=== PATIENT | female | born 2000 | race Caucasian/White ===

== ENCOUNTER 2021-07-09 16:25 | Emergency (ER) | payer OTHER ==
[~2021-07-09] VITALS: Ht 154.9 cm; Wt 34.9 kg
[2021-07-09 17:05] VITALS: BP 129/85
[2021-07-09] MEDS ORDERED: cefTRIAXone SOD 1,000 MG VL IM ONE (17:15)
[2021-07-09] MEDS ORDERED: NAPR500T31 PO (17:51)
[2021-07-09] MEDS ORDERED: CEPH500C PO (17:51)
== END 2021-07-09 17:55 | disposition home or self-care (01) ==
LOC: ER 16:27
DX: N76.4 Abscess of vulva (principal); F17.210 Nicotine dependence, cigarettes, uncomplicated
CPT/HCPCS: 96372; 99283; J0696

== ENCOUNTER 2022-02-26 12:47 | Observation (INO) | payer OTHER ==
[~2022-02-26] VITALS: Ht 152.4 cm; Wt 51.3 kg
[~2022-02-26 12:47] MED LIST: CEPH500C PO; NAPR500T31 PO
[2022-02-26] MEDS ORDERED: PREN-96 PO (14:37)
== END 2022-02-26 15:03 | disposition home or self-care (01) ==
LOC: LDRP 12:47
PROVIDERS: ADMIT Obstetrics & Gynecology; ATTEND Obstetrics & Gynecology
DX: O99.513 Diseases of the respiratory system complicating pregnancy, third trimester (principal); Z20.822 Contact with and (suspected) exposure to COVID-19; J02.9 Acute pharyngitis, unspecified; O26.893 Other specified pregnancy related conditions, third trimester; R05.9 Cough, unspecified; O99.323 Drug use complicating pregnancy, third trimester; F12.90 Cannabis use, unspecified, uncomplicated; Z3A.36 36 weeks gestation of pregnancy
CPT/HCPCS: 36415; 59025; 81002; 87426; 94760; G0378

== ENCOUNTER 2022-03-23 20:57 | Observation (INO) | payer OTHER ==
[~2022-03-23] VITALS: Ht 152.4 cm; Wt 51.3 kg
[~2022-03-23 20:57] MED LIST changes: +PREN-96 PO
== END 2022-03-23 22:46 | disposition home or self-care (01) ==
LOC: LDRP 20:57
PROVIDERS: ADMIT Obstetrics & Gynecology; ATTEND Obstetrics & Gynecology
DX: O62.9 Abnormality of forces of labor, unspecified (principal); O26.853 Spotting complicating pregnancy, third trimester; O26.893 Other specified pregnancy related conditions, third trimester; R10.9 Unspecified abdominal pain; Z3A.40 40 weeks gestation of pregnancy
CPT/HCPCS: 59025; 81002

== ENCOUNTER 2022-03-25 20:48 | Observation (INO) | payer OTHER ==
[~2022-03-25] VITALS: Ht 152.4 cm; Wt 51.3 kg
== END 2022-03-25 22:27 | disposition home or self-care (01) ==
LOC: LDRP 20:48
PROVIDERS: ADMIT Obstetrics & Gynecology; ATTEND Obstetrics & Gynecology
DX: O62.9 Abnormality of forces of labor, unspecified (principal); O26.853 Spotting complicating pregnancy, third trimester; O99.323 Drug use complicating pregnancy, third trimester; F12.90 Cannabis use, unspecified, uncomplicated; Z3A.40 40 weeks gestation of pregnancy
CPT/HCPCS: 59025; 81002; G0378